=== PATIENT | female | born 2000 | race Caucasian/White ===

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

== ENCOUNTER 2018-07-04 19:00 | Emergency (ER) | payer OTHER ==
[2018-07-04] MEDS: ALBUTEROL 0.5% (NEB) 2.5 MG/0.5 ML AMP NEB (20:20)
[2018-07-04] MEDS: METHYLPREDNISOLONE 125 MG INJ IM (20:28)
[2018-07-04] MEDS: ALBUTEROL 0.5% (NEB) 2.5 MG/0.5 ML AMP INH (20:36)
[2018-07-04] MEDS: IPRATROPIUM (NEB) 0.5 MG/2.5 ML AMP NEB (20:36)
== END 2018-07-04 21:49 | disposition home or self-care (01) ==
LOC: FTE 19:00
DX: J45.901 Unspecified asthma with (acute) exacerbation (principal)
CPT/HCPCS: 94644; 96372; 99284-25

== ENCOUNTER 2018-08-17 08:48 | Emergency (ER) | payer OTHER ==
[2018-08-17] MEDS: IPRATROPIUM (NEB) 0.5 MG/2.5 ML AMP HHN (09:35)
[2018-08-17] MEDS: ALBUTEROL 0.083% (NEB) 2.5 MG/3 ML AMP HHN (09:35)
== END 2018-08-17 10:40 | disposition home or self-care (01) ==
LOC: FTE 08:48
DX: J45.901 Unspecified asthma with (acute) exacerbation (principal); Z76.0 Encounter for issue of repeat prescription
CPT/HCPCS: 94664; 99283-25

== ENCOUNTER 2018-10-17 10:57 | Emergency (ER) | payer BC, OTHER ==
[2018-10-17] MEDS: DIPHTH/TET/ACEL PERTUSS (ADULT) 0.5 ML VIAL IM* (11:20)
== END 2018-10-17 11:56 | disposition home or self-care (01) ==
LOC: FTE 11:56
DX: M79.674 Pain in right toe(s) (principal); M79.675 Pain in left toe(s); J45.909 Unspecified asthma, uncomplicated; Z23 Encounter for immunization
CPT/HCPCS: 90471; 90715; 99283-25

== ENCOUNTER 2019-03-08 18:56 | Emergency (ER) | payer BC, OTHER ==
[2019-03-08] MEDS: IBUPROFEN 600 MG TAB PO (20:08)
[2019-03-08] MEDS: CEPHALEXIN 500 MG CAP PO (20:08)
[2019-03-08] MEDS: TRIMETHOPRIM/SULFAMETHOX (DS) TAB PO (20:09)
== END 2019-03-08 20:14 | disposition home or self-care (01) ==
LOC: FTE 18:56
DX: L02.01 Cutaneous abscess of face (principal); J45.909 Unspecified asthma, uncomplicated
CPT/HCPCS: 99283